=== PATIENT | female | born 1960 | race Caucasian/White ===

== ENCOUNTER 2022-11-27 08:45 | Outpatient (CLI) | payer OTHER, SELFPAY | END 2022-11-27 08:46 | disposition home or self-care (01) | PROVIDERS: PCP Family Medicine; Visit Provider Family Medicine | DX: Z00.00 Encounter for general adult medical examination without abnormal findings (principal); E78.2 Mixed hyperlipidemia; R68.82 Decreased libido; Z13.6 Encounter for screening for cardiovascular disorders; Z11.59 Encounter for screening for other viral diseases | CPT/HCPCS: 80053; 80061; 86803 ==